=== PATIENT | male | born 1955 | race Caucasian/White ===

== ENCOUNTER 2023-03-15 06:19 | Outpatient (CLI) | payer MEDICARE, SELFPAY ==
--- NOTE | ~2023-03-15 | XR_ITS ---
Left wrist Technique: PA, oblique, lateral, and ulnar deviation views were obtained. Clinical History: Distal radial fracture Findings: There is comminuted distal radial fracture, transverse fracture line through the distal rad ial metaphyseal region but additional longitudinal components extending through the radial styloid pr ocess to the articular surface. Fracture findings overall are minimally displaced, without significan t articular surface step-off. There is probable small acute fracture of the ulnar styloid process tip . 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 There is mild to moderate degenerativ e change at the STT articulations. Soft tissues are unremarkable. Impression: Comminuted intra-articular, mildly impacted and minimally displaced fracture of the distal radius, as detailed above. Probable small acute fracture of the ulnar styloid process tip. Degenerative changes at the first CMC joint and STT articulations, as detailed above. Reviewed, dictated and finalized at [facility]. Impression: Comminuted intra-articular, mildly impacted and minimally displaced fracture of the distal radius, as detailed above. Probable small acute fracture of the ulnar styloid process tip. Degenerative changes at the first CMC joint and STT articulations, as detailed above.
== END 2023-03-15 06:20 | disposition home or self-care (01) ==
PROVIDERS: PCP Emergency Medicine; Visit Provider Emergency Medicine
DX: S52.502A Unspecified fracture of the lower end of left radius, initial encounter for closed fracture (principal)
CPT/HCPCS: 73110

== ENCOUNTER 2023-04-18 07:00 | Outpatient (CLI) | payer MEDICARE, SELFPAY ==
--- NOTE | ~2023-04-18 | XR_ITS ---
XR wrist LT w scaphoid 04/18/2023 08:12 Indication: Follow-up left wrist fracture Procedure: 4 views left wrist Comparison: 03/15/2023 Findings: Stable alignment of comminuted intra-articular fracture of the distal aspect of the radius. There is an ulnar styloid fracture with displacement. There is severe degenerative change of the tri scaphe and first carpal metacarpal joints. Impression: 1: Stable alignment of an impaction, comminuted intra-articular fracture distal aspect of the radius with mild dorsal tilt. There is developing sclerosis of the fractures. 2: Ulnar styloid avulsion fracture. Reviewed, dictated and finalized at [facility]. Impression: 1: Stable alignment of an impaction, comminuted intra-articular fracture distal aspect of the radius with mild dorsal tilt. There is developing sclerosis of t he fractures. 2: Ulnar styloid avulsion fracture.
== END 2023-04-18 07:01 | disposition home or self-care (01) ==
PROVIDERS: PCP Emergency Medicine; Visit Provider Emergency Medicine
DX: S52.592A Other fractures of lower end of left radius, initial encounter for closed fracture (principal); S52.612A Displaced fracture of left ulna styloid process, initial encounter for closed fracture
CPT/HCPCS: 73110